=== PATIENT | male | born 1945 | race Caucasian/White ===

== ENCOUNTER 2018-01-19 19:07 | Emergency (ER) | payer MEDICARE ==
[~2018-01-19 19:07] MED LIST: HYDR12.54 PO; LOSA100T29 PO
[2018-01-19] MEDS ORDERED: PREDNISONE 20 MG TABLET ONE (19:24)
[2018-01-19] MEDS ORDERED: ACETAMINOPHEN-CODEINE 300/30MG TAB ONE (19:27)
[2018-01-19] MEDS ORDERED: IPRATROPIUM/ALBUTEROL SULFATE 3 ML SOLUTION IH ONE (19:35)
[2018-01-19 19:41] LABS: BASOPHILS % (AUTO) 0.4 % (0.0-5.0); LYMPHOCYTES % (AUTO) 13.8 % (21.0-51.0); MEAN CORPUSCULAR HEMOGLOBIN 34.8 pg (27.0-33.0); MEAN CORPUSCULAR HGB CONC 35.5 g/dL (32.0-36.0); MEAN CORPUSCULAR VOLUME 97.9 fL (79-99); NEUTROPHILS % (AUTO) 70.8 % (40.0-77.0); NUCLEATED RED BLOOD CELLS 0.1 % (0.0-0.19); PLATELET COUNT (AUTO) 142 K/uL (130-400); RED BLOOD CELL COUNT(AUTO) 3.98 MIL/uL (4.50-6.20); RED CELL DISTRIBUTION WIDTH 12.6 % (11.0-15.5); WHITE BLOOD COUNT (AUTO) 5.3 K/uL (4.8-10.8)
[2018-01-19 19:44] LABS: CREATININE 1.2 mg/dL (0.5-1.5); POTASSIUM 3.6 mmol/L (3.5-5.1)
[2018-01-19 19:49] LABS: ALBUMIN 3.3 g/dL (3.5-5.0); BILIRUBIN,TOTAL 0.4 mg/dL (0.2-1.0); TOTAL PROTEIN, SERUM 6.5 g/dL (6.0-8.3)
== END 2018-01-19 21:00 | disposition home or self-care (01) ==
LOC: EDH 19:07
DX: J10.1 Influenza due to other identified influenza virus with other respiratory manifestations (principal); J20.9 Acute bronchitis, unspecified; I10 Essential (primary) hypertension; Z96.649 Presence of unspecified artificial hip joint
CPT/HCPCS: 36415; 71046; 80053; 85025; 87804; 94640

== ENCOUNTER 2021-02-21 17:05 | Emergency (ER) | payer MEDICARE, OTHER ==
[~2021-02-21 17:05] MED LIST changes: -LOSA100T29 PO; +LOSA100T58 PO
[2021-02-21] MEDS ORDERED: TETANUS/DIPHTHERIA TOXOID [ADULT] 0.5 ML VIAL IM ONE (20:17)
[2021-02-21] MEDS ORDERED: OCTYL 2-CYANOACRYLATE 1 EACH TP ONE (20:33)
== END 2021-02-21 20:50 | disposition home or self-care (01) ==
LOC: EDH 17:05
DX: S00.01XA Abrasion of scalp, initial encounter (principal); S09.90XA Unspecified injury of head, initial encounter; M54.5 Low back pain; I10 Essential (primary) hypertension; V89.2XXA Person injured in unspecified motor-vehicle accident, traffic, initial encounter; Y93.89 Activity, other specified; Y92.488 Other paved roadways as the place of occurrence of the external cause; Y99.8 Other external cause status
CPT/HCPCS: 70450; 72100; 72125; 72131; 90471; 90714